=== PATIENT | female | born 1995 | race Caucasian/White ===

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

== ENCOUNTER 2017-03-12 07:40 | Emergency (ER) | payer OTHER ==
[2017-03-12 08:11] LABS: BILIRUBIN 1+ mg/dL (NEGATIVE); BLOOD NEGATIVE Ery/uL (NEGATIVE); CLARITY CLEAR (CLEAR); COLOR YELLOW (YELLOW); GLUCOSE (U) NORMAL (NORMAL); KETONE (U) NEGATIVE (NEGATIVE); LEUKOCYTES TRACE Leu/uL (NEGATIVE); NITRITE NEGATIVE (NEGATIVE); PROTEIN 1+ mg/dL (NEGATIVE); SPECIFIC GRAVITY 1.025 (1.001-1.030); pH 6.5 (5.0-9.0)
[2017-03-12 08:19] LABS: BACTERIA 2+; MUCOUS MODERATE; SQUAMOUS EPITHELIAL CELLS 20-50
[2017-03-12 08:34] LABS: BASOPHIL 0.2 % (0-2); EOSINOPHIL 1.7 % (0-5); HCT 41.9 % (37.0-47.0); HGB 14.5 g/dl (12.5-16.0); LYMPHOCYTE 25.2 % (15-48); MCH 31.4 pg (25.0-31.0); MCHC 34.6 g/dL (32.0-36.0); MCV 90.7 fL (78.0-100.0); MONOCYTE 11.7 % (0-12); MPV 13.1 fL (6.0-9.5); NEUTROPHIL 61.2 % (41-80); PLT 138 K/uL (150-400); RBC 4.62 M/uL (4.20-5.40); RDW 12.6 % (11.5-14.0); WBC 4.6 K/uL (4.0-10.5)
[2017-03-12 09:04] LABS: CREATININE 0.7 mg/dL (0.5-1.0); POTASSIUM 4.1 mmol/L (3.5-5.1)
== END 2017-03-12 11:12 | disposition home or self-care (01) ==
LOC: FER 07:40
PROVIDERS: Internal Medicine
DX: R11.10 Vomiting, unspecified (principal); R13.10 Dysphagia, unspecified; F17.200 Nicotine dependence, unspecified, uncomplicated
CPT/HCPCS: 36415; 80048; 81001; 85025; 87450; J2765

== ENCOUNTER 2020-08-17 10:16 | Emergency (ER) | payer OTHER ==
[~2020-08-17 10:16] MED LIST: IBUPROFEN800 MG PO; LODINE400 MG PO; TESSALON PERLE100 MG PO; VENTOLIN HFA IN18 GM INH
[2020-08-17 11:34] LABS: BILIRUBIN NEGATIVE (NEGATIVE); BLOOD NEGATIVE Ery/uL (NEGATIVE); COLOR YELLOW (YELLOW); GLUCOSE (U) NORMAL (NORMAL); LEUKOCYTES NEGATIVE Leu/uL (NEGATIVE); NITRITE NEGATIVE (NEGATIVE); PROTEIN 2+ mg/dL (NEGATIVE); SPECIFIC GRAVITY >=1.030 (1.001-1.030); UROBILINOGEN 0.2 mg/dL (0.2-1.0)
[2020-08-17 11:35] LABS: CLARITY SLIGHTLY HAZY (CLEAR)
[2020-08-17 11:37] LABS: BASOPHIL 0.5 % (0-2); EOSINOPHIL 0.5 % (0-5); HCT 41.4 % (37.0-47.0); HGB 13.9 g/dl (12.5-16.0); LYMPHOCYTE 12.2 % (15-48); MCH 31.7 pg (25.0-31.0); MCHC 33.6 g/dL (32.0-36.0); MCV 94.5 fL (78.0-100.0); MPV 14.3 fL (6.0-9.5); NEUTROPHIL 79.2 % (41-80); NRBC 0; PLT 135 K/uL (150-400); RBC 4.38 M/uL (4.20-5.40); RDW 13.7 % (11.5-14.0); WBC 8.6 K/uL (4.0-10.5)
[2020-08-17 11:38] LABS: AMPHETAMINES NEGATIVE (NEGATIVE); BARBITURATES NEGATIVE (NEGATIVE); ECSTASY (MDMA) NEGATIVE (NEGATIVE); MARIJUANA (THC) NEGATIVE (NEGATIVE); METHADONE NEGATIVE (NEGATIVE); OPIATES NEGATIVE (NEGATIVE); OXYCODONE NEGATIVE (NEGATIVE)
[2020-08-17 11:41] LABS: URINARY WBC RARE
[2020-08-17 11:42] LABS: BACTERIA TRACE; SQUAMOUS EPITHELIAL CELLS 20-50; URINARY RBC RARE
[2020-08-17 11:54] LABS: ALBUMIN 3.3 g/dL (3.4-5.0); BILIRUBIN - TOTAL 0.3 mg/dL (0.2-1.0); BUN/CREAT RATIO (CALC) 10.3 RATIO; CREATININE 0.58 mg/dL (0.51-0.95); GLOBULIN (CALCULATION) 3.8 g/dL; POTASSIUM 3.7 mmol/L (3.5-5.1); TOTAL PROTEIN 7.1 g/dL (6.4-8.2)
== END 2020-08-17 12:20 | disposition home or self-care (01) ==
LOC: FER 10:16
PROVIDERS: Emergency Medicine
DX: O9A.212 Injury, poisoning and certain other consequences of external causes complicating pregnancy, second trimester (principal); S30.0XXA Contusion of lower back and pelvis, initial encounter; S20.221A Contusion of right back wall of thorax, initial encounter; S20.219A Contusion of unspecified front wall of thorax, initial encounter; M79.671 Pain in right foot; O99.332 Smoking (tobacco) complicating pregnancy, second trimester; F17.210 Nicotine dependence, cigarettes, uncomplicated; Z91.040 Latex allergy status; W01.198A Fall on same level from slipping, tripping and stumbling with subsequent striking against other object, initial encounter; Y92.009 Unspecified place in unspecified non-institutional (private) residence as the place of occurrence of the external cause; Z3A.18 18 weeks gestation of pregnancy
CPT/HCPCS: 36415; 76770; 76815; 80053; 80305; 81001; 85025; J1170; J2405; J7030

== ENCOUNTER 2021-01-18 11:52 | Inpatient (IN) | payer OTHER ==
[2021-01-18 13:34] LABS: BILIRUBIN NEGATIVE (NEGATIVE); BLOOD NEGATIVE Ery/uL (NEGATIVE); CLARITY CLEAR (CLEAR); COLOR YELLOW (YELLOW); GLUCOSE (U) NORMAL (NORMAL); LEUKOCYTES NEGATIVE Leu/uL (NEGATIVE); NITRITE NEGATIVE (NEGATIVE); PROTEIN NEGATIVE (NEGATIVE); UROBILINOGEN 0.2 mg/dL (0.2-1.0); pH 7.5 (5.0-9.0)
[2021-01-18 13:34] LABS: HCT 34.5 % (37.0-47.0); HGB 11.7 g/dl (12.5-16.0); MCH 32.1 pg (25.0-31.0); MCHC 33.9 g/dL (32.0-36.0); MCV 94.5 fL (78.0-100.0); MPV 13.2 fL (6.0-9.5); RBC 3.65 M/uL (4.20-5.40); RDW 13.2 % (11.5-14.0); WBC 7.7 K/uL (4.0-10.5)
[2021-01-18 13:37] LABS: BARBITURATES NEGATIVE (NEGATIVE); ECSTASY (MDMA) NEGATIVE (NEGATIVE); METHADONE NEGATIVE (NEGATIVE); OPIATES NEGATIVE (NEGATIVE)
[2021-01-18 13:38] LABS: AMPHETAMINES NEGATIVE (NEGATIVE); MARIJUANA (THC) POSITIVE (NEGATIVE); OXYCODONE NEGATIVE (NEGATIVE)
[2021-01-20 08:02] LABS: HCT 35.1 % (37.0-47.0); HGB 11.8 g/dl (12.5-16.0); MCHC 33.6 g/dL (32.0-36.0); MCV 95.1 fL (78.0-100.0); MPV 12.9 fL (6.0-9.5); RBC 3.69 M/uL (4.20-5.40); RDW 13.2 % (11.5-14.0); WBC 6.9 K/uL (4.0-10.5)
== END 2021-01-20 19:45 | disposition home or self-care (01) | DRG 806 ==
LOC: FOB 11:52
PROVIDERS: ADMIT Obstetrics & Gynecology
PROC: 10E0XZZ Delivery of Products of Conception, External Approach (ICD-10-PCS; principal; 2021-01-19)
PROC: 0HQ9XZZ Repair Perineum Skin, External Approach (ICD-10-PCS; 2021-01-19)
DX: O99.214 Obesity complicating childbirth (principal); O99.12 Other diseases of the blood and blood-forming organs and certain disorders involving the immune mechanism complicating childbirth; Z37.0 Single live birth; D69.6 Thrombocytopenia, unspecified; Z3A.39 39 weeks gestation of pregnancy; O99.324 Drug use complicating childbirth; Z20.822 Contact with and (suspected) exposure to COVID-19; F12.90 Cannabis use, unspecified, uncomplicated; O67.8 Other intrapartum hemorrhage; O99.334 Smoking (tobacco) complicating childbirth; Z91.040 Latex allergy status; O99.344 Other mental disorders complicating childbirth; F41.8 Other specified anxiety disorders
CPT/HCPCS: 36415; 80305; 81003; 86850; 86900; 86901; J0595; J2300; J2405; J3010; J3105; J7120; U0002

== ENCOUNTER 2021-05-04 06:37 | Emergency (ER) | payer OTHER ==
[2021-05-04] MEDS ORDERED: IBUPROFEN800 MG PO (08:40)
[2021-05-04] MEDS ORDERED: NORCO 5-325 TA1 EACH PO (08:40)
== END 2021-05-04 09:14 | disposition home or self-care (01) ==
LOC: FER 06:37
DX: S00.11XA Contusion of right eyelid and periocular area, initial encounter (principal); F17.200 Nicotine dependence, unspecified, uncomplicated; Y04.0XXA Assault by unarmed brawl or fight, initial encounter; Y92.59 Other trade areas as the place of occurrence of the external cause
CPT/HCPCS: 70450; 70486; 72125; J1100; J1885; J2270; J2405

== ENCOUNTER 2021-11-14 20:25 | Emergency (ER) | payer OTHER ==
[~2021-11-14 20:25] MED LIST changes: +NORCO 5-325 TA1 EACH PO
== END 2021-11-14 21:50 ==
LOC: FER 20:25
DX: S00.83XA Contusion of other part of head, initial encounter (principal); S09.93XA Unspecified injury of face, initial encounter; Z91.040 Latex allergy status; W18.09XA Striking against other object with subsequent fall, initial encounter
CPT/HCPCS: 99283

== ENCOUNTER 2021-11-15 07:14 | Emergency (ER) | payer OTHER | END 2021-11-15 10:45 | disposition other institution (70) | LOC: FER 07:14 | DX: S02.652B Fracture of angle of left mandible, initial encounter for open fracture (principal); S02.601B Fracture of unspecified part of body of right mandible, initial encounter for open fracture; Z28.310 Unvaccinated for COVID-19; F17.210 Nicotine dependence, cigarettes, uncomplicated; Z91.040 Latex allergy status; Y04.0XXA Assault by unarmed brawl or fight, initial encounter | CPT/HCPCS: 70450; 70486; 72125; 73110; J0696; J1170; J2405 ==

== ENCOUNTER 2021-12-10 09:11 | Emergency (ER) | payer OTHER ==
[2021-12-10] MEDS ORDERED: CLEOCIN300 MG PO (10:27)
[2021-12-10] MEDS ORDERED: NORCO 5-325 TA1 EACH PO (10:27)
== END 2021-12-10 10:56 | disposition home or self-care (01) ==
LOC: FER 09:11
DX: M96.830 Postprocedural hemorrhage of a musculoskeletal structure following a musculoskeletal system procedure (principal); F17.210 Nicotine dependence, cigarettes, uncomplicated; Z91.040 Latex allergy status
CPT/HCPCS: 99283

== ENCOUNTER 2022-03-15 12:51 | Emergency (ER) | payer OTHER ==
[~2022-03-15 12:51] MED LIST changes: +CLEOCIN300 MG PO
[2022-03-15 13:22] LABS: BASOPHIL 0.7 % (0-2); EOSINOPHIL 2.7 % (0-5); HCT 43.8 % (37.0-47.0); LYMPHOCYTE 27.8 % (15-48); MCH 32.9 pg (25.0-31.0); MCHC 34.2 g/dL (32.0-36.0); MCV 96.1 fL (78.0-100.0); MONOCYTE 7.7 % (0-12); MPV 13.8 fL (6.0-9.5); NEUTROPHIL 60.7 % (41-80); NRBC 0; PLT 146 K/uL (150-400); RBC 4.56 M/uL (4.20-5.40); RDW 13.2 % (11.5-14.0); WBC 5.5 K/uL (4.0-10.5)
[2022-03-15 13:28] LABS: BILIRUBIN NEGATIVE (NEGATIVE); BLOOD NEGATIVE Ery/uL (NEGATIVE); CLARITY CLEAR (CLEAR); COLOR YELLOW (YELLOW); GLUCOSE (U) NORMAL (NORMAL); LEUKOCYTES NEGATIVE Leu/uL (NEGATIVE); NITRITE NEGATIVE (NEGATIVE); PROTEIN NEGATIVE (NEGATIVE); SPECIFIC GRAVITY 1.015 (1.001-1.030); UROBILINOGEN 0.2 mg/dL (0.2-1.0); pH 7.5 (5.0-9.0)
[2022-03-15 13:49] LABS: ALBUMIN 3.7 g/dL (3.4-5.0); BILIRUBIN - TOTAL 0.3 mg/dL (0.2-1.0); BUN/CREAT RATIO (CALC) 6.5 RATIO; CREATININE 0.77 mg/dL (0.51-0.95); GLOBULIN (CALCULATION) 3.5 g/dL; POTASSIUM 3.8 mmol/L (3.5-5.1); TOTAL PROTEIN 7.2 g/dL (6.4-8.2)
[2022-03-15 13:49] LABS: CORONAVIRUS 2019 SARS-COV-2 NEGATIVE (NEGATIVE); INFLUENZA A NAA NEGATIVE (NEGATIVE)
[2022-03-15] MEDS ORDERED: ONDANSETRON ODT4 MG PO (14:09)
== END 2022-03-15 14:16 | disposition home or self-care (01) ==
LOC: FER 12:51
PROVIDERS: Physician Assistant
DX: B34.9 Viral infection, unspecified (principal); F17.210 Nicotine dependence, cigarettes, uncomplicated; Z91.040 Latex allergy status; Z20.822 Contact with and (suspected) exposure to COVID-19; Z28.310 Unvaccinated for COVID-19
CPT/HCPCS: 36415; 80053; 81003; 85025; 99283; U0002

== ENCOUNTER 2022-03-26 00:34 | Emergency (ER) | payer OTHER ==
[~2022-03-26 00:34] MED LIST changes: +ONDANSETRON ODT4 MG PO
== END 2022-03-26 01:26 | disposition home or self-care (01) ==
LOC: FER 00:34
DX: S60.221A Contusion of right hand, initial encounter (principal); S60.211A Contusion of right wrist, initial encounter; S69.92XA Unspecified injury of left wrist, hand and finger(s), initial encounter; F41.9 Anxiety disorder, unspecified; F32.A Depression, unspecified; Z91.040 Latex allergy status; Z79.899 Other long term (current) drug therapy; X58.XXXA Exposure to other specified factors, initial encounter; Z28.310 Unvaccinated for COVID-19
CPT/HCPCS: 73110